=== PATIENT | female | born 1990 | race Two or more races ===

== ENCOUNTER 2020-07-07 06:53 | Outpatient (REF) | payer OTHER, SELFPAY | END 2020-07-07 06:54 | disposition home or self-care (01) | LOC: HO.LAB 06:53 | PROVIDERS: Visit Provider Internal Medicine | DX: Z20.828 Contact with and (suspected) exposure to other viral communicable diseases (principal) | CPT/HCPCS: C9803; U0003 ==

== ENCOUNTER 2021-01-18 06:22 | Emergency (ER) | payer OTHER, SELFPAY ==
--- NOTE | 2021-01-18 07:16 | ED_ITS ---
HPI - Extremity Problem General Chief complaint: Back Pain/Injury Stated complaint: right hip/leg pain Time Seen by Provider: 01/18/21 07:16 Source: patient Mode of arrival: ambulatory Limitations: no limitations History of Present Illness Complaint: other (R buttock/hip pain) Onset (ago): day(s) (started this AM upon waking) Pain Consistency: intermittent Location: right and lower extremity Quality: stabbing Radiation: distal Exacerbating factors: weight bearing, walking and palpation Associated symptoms: denies other symptoms Related Data Previous Rx's Medication Instructions Recorded cyclobenzaprine 10 mg PO TID PRN #14 tab 01/18/21 ibuprofen 600 mg PO Q6H PRN #30 tab 01/18/21 lidocaine 1 patch TOPICAL DAILY PRN #10 ea 01/18/21 prednisone 20 mg PO DAILY 3 Days #3 tab 01/18/21 Allergies Allergy/AdvReac Type Severity Reaction Status Date / Time tomato Allergy Mild UPSET Unverified 04/29/20 16:15 STOMACH peanut [PEANUT] Allergy Unknown SWELLING, Unverified 04/29/20 16:15 SOB strawberry [STRAWBERRY] Allergy Unknown SWELLING,SO Unverified 04/29/20 16:15 B CHOCOLATE Allergy Unknown SWELLING Uncoded 04/29/20 16:15 SOB dairy Allergy Unknown GI Uncoded 10/08/12 00:00 intolerance, pain peanuts, almonds, coconuts, Allergy Unknown allergy Uncoded 10/08/12 00:00 co testing results pinapples, peaches, Allergy Unknown tongue Uncoded 10/08/12 00:00 strawberri swells, numbness SEAFOOD Allergy Unknown SWELLING, Uncoded 04/29/20 16:15 SOB seafood-shrimp Allergy Unknown allergy Uncoded 10/08/12 00:00 testing-advised to avoid SEASONAL ALLERGIES Allergy Unknown UNKNOWN Uncoded 04/29/20 16:15 tomatoes Allergy Unknown rash, Uncoded 10/08/12 00:00 stomachache Review of Systems Review of Systems: Constitutional : No Weight loss, No Fever, No Chills, ENT/Mouth : No Hearing loss, No Ear Pain, No Nasal Congestion, No Sinus Pain, No Hoarseness, No sore throat, No Rhinorrhea, No Swallowing Difficulty Cardiovascular : No Chest Pain, No SOB Respiratory : No Cough, No Dyspnea Gastrointestinal : No Nausea, No Vomiting, No Diarrhea, No abdominal Pain Genitourinary : No Dysuria, No Urinary Frequency, No Hematuria, No Urinary Incontinence, Musculoskeletal : positive back pain Skin : No Skin Lesions, No rash Neuro : No Weakness, No Numbness, No Paresthesias, no loss of bowel or bladder incontinence, no saddle anesthesia [facility] Past Medical History Medical History (Updated 01/18/21 @ 07:33 by Becky Romero DO) No active medical problems Social History Social History (Updated 01/18/21 @ 07:33 by Becky Romero DO) Patient Tobacco Use Status: Never used Tobacco Use of substances other than those prescribed or required for medical reasons: No Advance Directives: No Advance Directives Information Provided: No Patient : No Physical Exam Vital Signs: Vital Signs: Last Vital Signs Temp 98.4 F 01/18/21 07:22 Pulse 96 01/18/21 07:22 Resp 18 01/18/21 07:22 BP 116/80 01/18/21 07:22 Pulse Ox 100 01/18/21 07:22 Body Mass Index 34.7 Appearance: Alert. Oriented X3. No acute distress. Eyes: Pupils equal, round and reactive to light. ENT: Pharynx normal. Neck: Normal inspection. Neck supple. CVS: Normal heart rate and rhythm. Pulses normal. Respiratory: No respiratory distress. Breath sounds normal. Abdomen: Soft and nontender. Back: R buttock pain radiates pain down R leg Skin: Skin warm and dry. Normal skin color. Normal skin turgor. Extremities: No lower extremity edema. No calf ttp R leg NV intact, SILT inner thigh Neuro: Oriented X 3. No motor deficit. No sensory deficit. MDM - Extremity (Nontraumatic) MDM Narrative Medical decision making narrative: 30 yo female with no sig PMH here with acute onset R hip/buttock pain radiating down to leg consistent with sciatica, no b/b incontinence, no saddle anesthesia, no IVDA< no AC therapy - will treat with stretches and anti inflammatories, PCP follow up, discussed reasons to return Discharge Plan Discharge Clinical Impression: Sciatica Qualifiers: Laterality: right Qualified Code(s): M54.31 - Sciatica, right side Patient Disposition: Home, Self-Care Instructions: Sciatica (ED), Lower Back Exercises (ED) Additional Instructions: return to ED for any worsening symptoms or concerns Prescriptions: New cyclobenzaprine 10 mg tablet 10 mg PO TID PRN (Reason: muscle spasm) Qty: 14 RF: 0 lidocaine 4 % adhesive patch,medicated 1 patch topical DAILY PRN (Reason: pain) Qty: 10 RF: 0 ibuprofen 600 mg tablet 600 mg PO Q6H PRN (Reason: pain) Qty: 30 RF: 0 prednisone 20 mg tablet 20 mg PO DAILY 3 Days Qty: 3 RF: 0 Referrals: Izabela Nieves DO [Primary Care Provider] - 2 days (if not better) Stand Alone Forms: Work/School Release
[2021-01-18 07:22] VITALS: BP 116/80; PULSE 96; RESP 18; TEMP 36.9; O2SAT 100; BMI 34.7
[2021-01-18] MEDS: Ketorolac Tromethamine 60 MG/2 ML VIAL IM (07:34)
== END 2021-01-18 07:47 | disposition home or self-care (01) ==
PROVIDERS: Emergency Provider Emergency Medicine; PCP Internal Medicine
DX: M54.41 Lumbago with sciatica, right side (principal)
CPT/HCPCS: 96372; 99283; 99284; J1885

== ENCOUNTER 2021-12-07 11:55 | Outpatient (REF) | payer OTHER, SELFPAY ==
[2021-12-07 12:25] LABS: COVID-19 Test Positive (Negative); IDNOW Serial# 16C4AD1C
== END 2021-12-07 11:56 | disposition home or self-care (01) ==
LOC: HO.LAB 11:55
PROVIDERS: Visit Provider Internal Medicine
DX: Z20.822 Contact with and (suspected) exposure to COVID-19 (principal)
CPT/HCPCS: 87635; C9803